=== PATIENT | male | born 1995 | race Caucasian/White ===

== ENCOUNTER 2017-01-20 13:52 | Emergency (ER) | payer OTHER | END 2017-01-20 16:37 | disposition short-term general hospital (02) | LOC: D.ER 13:52 | DX: G89.18 Other acute postprocedural pain (principal); F17.200 Nicotine dependence, unspecified, uncomplicated ==

== ENCOUNTER 2017-04-04 15:39 | Emergency (ER) | payer OTHER ==
[2017-04-04 17:53] LABS: BASOPHILS 0.2 % (0-2); EOSINOPHILS 0.4 % (0-7); HEMATOCRIT 44.2 % (42.0-54.0); HEMOGLOBIN 15.9 g/dL (13.5-17.5); IMMATURE GRANULOCYTES 0.4 % (0-5); LYMPHOCYTES 12.2 % (15-50); MCH 31.4 pg (26.0-34.0); MCV 87.2 fL (80.0-100.0); MEAN PLATELET VOLUME 10.8 fL (7.4-10.4); MONOCYTES 7.3 % (2-11); NEUTROPHILS 79.5 % (40-80); RBC 5.07 10x6/uL (4.20-6.10); RDW 12.7 % (11.5-14.5); WBC 18.5 10x3/uL (4.8-10.8)
[2017-04-04 18:03] LABS: PLATELET COUNT 184 10x3/uL (130-400)
[2017-04-04 18:20] LABS: ALBUMIN 3.9 g/dL (3.4-5.0); ALKALINE PHOSPHATASE 80 U/L (46-116); ALT (SGPT) 21 U/L (10-68); BILIRUBIN - TOTAL 0.93 mg/dL (0.2-1.3); CALC OSMOLALITY 278 mosm/kg (275-300); CALCIUM 8.9 mg/dL (8.5-10.1); CARBON DIOXIDE 25.7 mmol/L (21.0-32.0); CHLORIDE - SERUM 103 mmol/L (98-107); GLUCOSE 89 mg/dL (74-106); POTASSIUM - SERUM 3.3 mmol/L (3.5-5.1); PROTEIN - SERUM 7.2 g/dL (6.4-8.2); SODIUM 140 mmol/L (136-145); UREA NITROGEN 16 mg/dL (7-18); eGFR NON AFRICAN AMERICAN > 90 mL/min (90-120)
== END 2017-04-04 19:59 | disposition home or self-care (01) ==
LOC: D.ER 15:39
PROVIDERS: Physician Assistant Medical
DX: S80.01XA Contusion of right knee, initial encounter (principal); S50.01XA Contusion of right elbow, initial encounter; S90.01XA Contusion of right ankle, initial encounter; S10.93XA Contusion of unspecified part of neck, initial encounter; Y04.2XXA Assault by strike against or bumped into by another person, initial encounter; F17.200 Nicotine dependence, unspecified, uncomplicated

== ENCOUNTER 2018-03-08 17:34 | Emergency (ER) | payer OTHER ==
[~2018-03-08] VITALS: Ht 170.2 cm; Wt 71.4 kg
[2018-03-08 17:40] VITALS: Ht 170.2 cm; Wt 71.4 kg
[2018-03-08] MEDS ORDERED: ULTRAM50 MG PO (18:42)
[2018-03-08 19:22] VITALS: BP 145/71
== END 2018-03-08 19:24 | disposition home or self-care (01) ==
LOC: D.ER 17:34
DX: S50.11XA Contusion of right forearm, initial encounter (principal); Y04.2XXA Assault by strike against or bumped into by another person, initial encounter; Y93.89 Activity, other specified; Y92.019 Unspecified place in single-family (private) house as the place of occurrence of the external cause; F17.200 Nicotine dependence, unspecified, uncomplicated

== ENCOUNTER 2018-06-26 18:55 | Inpatient (IN) | payer OTHER ==
[~2018-06-26] VITALS: Ht 170.2 cm; Wt 64.4 kg
--- NOTE | ~2018-06-26 | CN ---
PATIENT NAME:SHREYAS BARRON JR MEDICAL RECORD: [id number] : 89 LOCATION:[id number] ADMIT DATE: 06/26/18 ACCOUNT: [id number] CONSULTING PHYSICIAN: NEHA RODRIGUEZ MD REFERRING PHYSICIAN: JOHN FREEMAN MD DATE OF CONSULTATION: 06/27/2018 PSYCHIATRIC CONSULTATION IDENTIFYING DATA: The patient is 22 years old and he is admitted to the hospital on a voluntary basis. CHIEF COMPLAINT: Overdose. HISTORY OF PRESENT ILLNESS: The patient was brought to the Emergency Room after having taken a large number of Valium that belonged to his father. He had also smoked marijuana and had been drinking some. His urine drug screen is positive for marijuana and a benzodiazepine and his blood alcohol level at least at the time, it was drawn in the Emergency Room, was present and did indicate the presence of alcohol, but did not indicate that he was dangerously intoxicated. The patient said in the Emergency Room or at least is quoted as having said in the Emergency Room that he was trying to kill himself and that he wished that we had just let him . The patient seems to have genuinely no recollection of this. He does report that he had an acute stressor yesterday, and that is that the mother of two twin children born a couple of days ago, had some other man sign the certificate as being the father and Shreyas firmly believes that he is the father of the children. He was very upset and was trying to calm himself and sleep yesterday by his report. He had an acquaintance named, Javier Schmitz, who is quoted as saying that Shreyas was intentionally trying to kill himself and that he took hundreds of Valium tablets that belonged to his father. Shreyas does not remember who Javier Schmitz is and then after a moment says that, oh yes he does remember now that was a fellow he just met yesterday and that they were "partying" together. Shreyas denies neurovegetative depressive symptoms. He is clearly angry and upset with the woman who had the two children and feels strongly that she is for some reason incorrectly identifying the father of the children. 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 He is distressed about losing his vision. Despite this, he does not show evidence of depressed mood, nor does he endorse vegetative depressive symptoms. He is probably below average in intelligence, has a history of polysubstance abuse as well as antisocial criminal behavior and is on parole for burglary. He is denying that he would seek to harm anyone else. He denies overt psychotic symptoms. MENTAL STATUS EXAMINATION: The patient is awake, alert and oriented to person, place, time and situation. His mood is euthymic. His affect is appropriate. Thought processes are goal directed. Memory, concentration, and abstraction abilities are intact. He denies that he would seek to harm himself or others as well as overt psychotic symptoms. ASSESSMENT: 1. Adjustment disorder with mixed emotional features. 2. Probable polysubstance abuse. 3. Probable antisocial personality disorder. CONSULT REPORT [id number] SHREYAS BARRON JR PLAN: At this time, the patient clearly took an overdose that is not debatable. There is documentation that he was trying to kill himself, but based on the interview, I am reasonably convinced that he was acutely impaired, intoxicated and under the influence when he made those statements and that he is not currently suicidal. He has been offered voluntary admission to a psychiatric facility and refused. He is willing to go to outpatient treatment. He does have a remote history of trying to harm himself and has 2 superficial scars on his left wrist that he made when he was a teenager. He is not currently in psychiatric treatment nor was it identified, nor was he placed in psychiatric treatment or on psychoactive medicines while [facility]. He is willing to go to outpatient counseling. He also is identifying that he needs to demand a paternity test, which is not a difficult thing to do to establish who is the father of these 2 children. He is speaking optimistically about the future, saying that he wants to be a good father and role model to these children and that he is going to learn to adapt to his loss of vision and he has known several people that are completely blind, who functioned very well. He is denying strongly that he wants to hurt himself. I suspect that the things that were quoted in the Emergency Room are correct and that he said them. I also believe that he is telling me the truth when he says he has no recollection of saying them. I also believe that he is telling me the truth that he is not acutely suicidal and again he does not have the vegetative symptoms or depressed mood. I suspect that probably the situation is one in which he is not of normal intelligence. He is below average in intelligence. He is under-socialized, has primitive defense mechanisms, tends to overreact to be impulsive and he was acutely upset and impaired cognitively when he began taking the pills yesterday. I do not think he currently meets criteria for an involuntary commitment and since he is willing to go to outpatient treatment and refusing inpatient treatment, I think that is the most reasonable course to establish at this point. I am going to refer him to the local mental health center. He says that he will go to the appointments and he is going to pursue a different route with the new mother and the babies that he thinks are his. TRANSINT:[id number] Voice Confirmation ID: [id number] DOCUMENT ID: [id number] NEHA RODRIGUEZ MD at 1612 CC: [id number] DICTATION DATE: 06/27/18 1537 [employer]ER: 06/27/18 1604 DIS IN 06/27/18 [facility] [address] [place] [address]
[~2018-06-26 18:55] MED LIST: ULTRAM50 MG PO
[2018-06-26 19:36] LABS: BASOPHILS 0.3 % (0-2); EOSINOPHILS 0.5 % (0-7); HEMATOCRIT 44.7 % (42.0-54.0); HEMOGLOBIN 15.6 g/dL (13.5-17.5); IMMATURE GRANULOCYTES 0.3 % (0-5); LYMPHOCYTES 20.6 % (15-50); MCH 31.3 pg (26.0-34.0); MCHC 34.9 g/dL (31.0-37.0); MCV 89.6 fL (80.0-100.0); MEAN PLATELET VOLUME 10.1 fL (7.4-10.4); NEUTROPHILS 73.3 % (40-80); PLATELET COUNT 184 10x3/uL (130-400); RBC 4.99 10x6/uL (4.20-6.10); RDW 13.2 % (11.5-14.5); WBC 11.6 10x3/uL (4.8-10.8)
[2018-06-26 19:52] VITALS: BP 105/62
[2018-06-26 19:59] LABS: ALBUMIN 4.1 g/dL (3.4-5.0); ALKALINE PHOSPHATASE 59 U/L (46-116); ALT (SGPT) 20 U/L (10-68); BILIRUBIN - TOTAL 0.51 mg/dL (0.2-1.3); CALC OSMOLALITY 276 mosm/kg (275-300); CALCIUM 8.6 mg/dL (8.5-10.1); CARBON DIOXIDE 18.4 mmol/L (21.0-32.0); CHLORIDE - SERUM 104 mmol/L (98-107); CREATININE - SERUM 0.8 mg/dL (0.6-1.3); GLUCOSE 96 mg/dL (74-106); POTASSIUM - SERUM 4.2 mmol/L (3.5-5.1); PROTEIN - SERUM 7.5 g/dL (6.4-8.2); SODIUM 140 mmol/L (136-145); UREA NITROGEN 7 mg/dL (7-18); eGFR NON AFRICAN AMERICAN > 90 mL/min (90-120)
[2018-06-26 20:08] LABS: CKMB 1.4 U/L (0.0-3.6); CREATINE KINASE 111 UL (21-232)
[2018-06-26 20:16] LABS: APPEARANCE CLEAR (CLEAR); BILIRUBIN NEGATIVE (NEGATIVE); COLOR STRAW (YELLOW); GLUCOSE NEGATIVE (NEGATIVE); KETONE NEGATIVE (NEGATIVE); NITRITE NEGATIVE (NEGATIVE); PROTEIN NEGATIVE (NEGATIVE); SPECIFIC GRAVITY 1.005 (1.005-1.020); UROBILINOGEN NORMAL (NORMAL)
[2018-06-26 20:17] LABS: TROPONIN-I < 0.017 ng/mL (0.000-0.060)
[2018-06-26 20:29] LABS: UDS - AMPHET NEGATIVE QUAL (NEGATIVE); UDS - BARB NEGATIVE QUAL (NEGATIVE); UDS - BENZO POSITIVE QUAL (NEGATIVE); UDS - COCAINE NEGATIVE QUAL (NEGATIVE); UDS - OPIATE NEGATIVE QUAL (NEGATIVE); UDS - PCP NEGATIVE QUAL (NEGATIVE); UDS - THC POSITIVE QUAL (NEGATIVE)
[2018-06-26 20:42] VITALS: BP 116/66
[2018-06-26 21:55] VITALS: BP 129/73; BMI 22.2
[2018-06-26 23:00] VITALS: BP 117/74
[2018-06-27] VITALS (7 sets, daily range): BP systolic 106–126; BP diastolic 61–82; Ht 170.2 cm; Wt 64.4 kg
[2018-06-27 03:29] LABS: BASOPHILS 0.6 % (0-2); EOSINOPHILS 1.7 % (0-7); HEMATOCRIT 40.9 % (42.0-54.0); HEMOGLOBIN 14.2 g/dL (13.5-17.5); IMMATURE GRANULOCYTES 0.2 % (0-5); LYMPHOCYTES 26.8 % (15-50); MCH 30.8 pg (26.0-34.0); MCHC 34.7 g/dL (31.0-37.0); MCV 88.7 fL (80.0-100.0); MEAN PLATELET VOLUME 10.2 fL (7.4-10.4); MONOCYTES 6.2 % (2-11); NEUTROPHILS 64.5 % (40-80); PLATELET COUNT 162 10x3/uL (130-400); RBC 4.61 10x6/uL (4.20-6.10); RDW 13.3 % (11.5-14.5); WBC 11.4 10x3/uL (4.8-10.8)
[2018-06-27 03:45] LABS: ALBUMIN 3.3 g/dL (3.4-5.0); ALKALINE PHOSPHATASE 50 U/L (46-116); BILIRUBIN - TOTAL 0.37 mg/dL (0.2-1.3); CALC OSMOLALITY 281 mosm/kg (275-300); CALCIUM 8.4 mg/dL (8.5-10.1); CHLORIDE - SERUM 109 mmol/L (98-107); CREATININE - SERUM 0.7 mg/dL (0.6-1.3); GLUCOSE 89 mg/dL (74-106); MAGNESIUM - SERUM 1.9 mg/dL (1.8-2.4); PROTEIN - SERUM 6.1 g/dL (6.4-8.2); SODIUM 143 mmol/L (136-145); UREA NITROGEN 8 mg/dL (7-18); eGFR NON AFRICAN AMERICAN > 90 mL/min (90-120)
[2018-06-27 03:47] LABS: ALT (SGPT) 14 U/L (10-68); CARBON DIOXIDE 24.2 mmol/L (21.0-32.0); POTASSIUM - SERUM 3.4 mmol/L (3.5-5.1)
== END 2018-06-27 15:54 | disposition home or self-care (01) | DRG 917 ==
LOC: D.ER 18:55 → OBSVTIME 20:48 → D.ICU 20:48
PROVIDERS: Family Medicine
PROC: 5A1945Z Respiratory Ventilation, 24-96 Consecutive Hours (ICD-10-PCS; principal; 2018-06-26)
PROC: 0BH17EZ Insertion of Endotracheal Airway into Trachea, Via Natural or Artificial Opening (ICD-10-PCS; 2018-06-26)
DX: T50.902A Poisoning by unspecified drugs, medicaments and biological substances, intentional self-harm, initial encounter (principal); J96.00 Acute respiratory failure, unspecified whether with hypoxia or hypercapnia; G93.40 Encephalopathy, unspecified

== ENCOUNTER 2018-11-12 12:00 | Emergency (ER) | payer SELFPAY ==
[~2018-11-12] VITALS: Ht 170.2 cm; Wt 72.6 kg
[2018-11-12 12:04] VITALS: Ht 170.2 cm; Wt 72.6 kg
[2018-11-12] MEDS ORDERED: SULFAMETHOXAZOL1 TA3 PO (13:28)
[2018-11-12] MEDS ORDERED: HYDROCODON-ACE1 EA10 PO (13:28)
[2018-11-12 13:54] VITALS: BP 129/74
== END 2018-11-12 13:55 | disposition home or self-care (01) ==
LOC: D.ER 12:00
DX: G89.18 Other acute postprocedural pain (principal); S69.92XD Unspecified injury of left wrist, hand and finger(s), subsequent encounter; W26.1XXD Contact with sword or dagger, subsequent encounter

== ENCOUNTER 2019-03-08 22:59 | Emergency (ER) | payer SELFPAY ==
[~2019-03-08] VITALS: Ht 170.2 cm; Wt 72.6 kg
[~2019-03-08 22:59] MED LIST changes: +HYDROCODON-ACE1 EA10 PO; +SULFAMETHOXAZOL1 TA3 PO
[2019-03-08 23:03] VITALS: Ht 170.2 cm; Wt 72.6 kg
[2019-03-08] MEDS ORDERED: ROBAXIN500 MG PO (23:47)
[2019-03-08] MEDS ORDERED: TORADOL10 MG PO (23:47)
[2019-03-09 00:03] VITALS: BP 123/86
== END 2019-03-09 00:04 | disposition home or self-care (01) ==
LOC: D.ER 22:59
DX: S39.011A Strain of muscle, fascia and tendon of abdomen, initial encounter (principal); X58.XXXA Exposure to other specified factors, initial encounter; F32.9 Major depressive disorder, single episode, unspecified

== ENCOUNTER 2019-11-26 18:10 | Emergency (ER) | payer SELFPAY ==
[~2019-11-26] VITALS: Ht 170.2 cm; Wt 72.7 kg
[~2019-11-26 18:10] MED LIST changes: +ROBAXIN500 MG PO; +TORADOL10 MG PO
[2019-11-26 18:12] VITALS: Ht 170.2 cm; Wt 72.7 kg
[2019-11-26 18:34] LABS: BASOPHILS 0.4 % (0-2); EOSINOPHILS 1.9 % (0-7); HEMATOCRIT 44.1 % (42.0-54.0); HEMOGLOBIN 15.6 g/dL (13.5-17.5); IMMATURE GRANULOCYTES 0.3 % (0-5); LYMPHOCYTES 21.7 % (15-50); MCH 31.1 pg (26.0-34.0); MCHC 35.4 g/dL (31.0-37.0); MCV 87.8 fL (80.0-100.0); MEAN PLATELET VOLUME 9.3 fL (7.4-10.4); MONOCYTES 6.3 % (2-11); NEUTROPHILS 69.4 % (40-80); PLATELET COUNT 192 10x3/uL (130-400); RBC 5.02 10x6/uL (4.20-6.10); RDW 13.2 % (11.5-14.5); WBC 10.8 10x3/uL (4.8-10.8)
[2019-11-26 18:58] LABS: CALC OSMOLALITY 277 mosm/kg (275-300); CALCIUM 9.1 mg/dL (8.5-10.1); CARBON DIOXIDE 27.6 mmol/L (21.0-32.0); CHLORIDE - SERUM 104 mmol/L (98-107); GLUCOSE 96 mg/dL (74-106); POTASSIUM - SERUM 3.9 mmol/L (3.5-5.1); SODIUM 139 mmol/L (136-145); UREA NITROGEN 13 mg/dL (7-18); eGFR NON AFRICAN AMERICAN > 90 mL/min (90-120)
--- NOTE | 2019-11-26 19:03 | NUR ---
According to the suicide assessment the patient scores high and requires a 1:1 observation.
[2019-11-26 19:05] LABS: ALBUMIN 3.9 g/dL (3.4-5.0); ALKALINE PHOSPHATASE 64 U/L (30-120); ALT (SGPT) 19 U/L (10-68); PROTEIN - SERUM 7.1 g/dL (6.4-8.2)
[2019-11-26 19:15] LABS: SPECIFIC GRAVITY 1.025 (1.005-1.020)
[2019-11-26 19:16] LABS: BILIRUBIN NEGATIVE (NEGATIVE); GLUCOSE NEGATIVE (NEGATIVE); KETONE NEGATIVE (NEGATIVE); NITRITE NEGATIVE (NEGATIVE); UROBILINOGEN NORMAL (NORMAL)
[2019-11-26 19:38] LABS: UDS - AMPHET POSITIVE QUAL (NEGATIVE); UDS - BARB NEGATIVE QUAL (NEGATIVE); UDS - BENZO NEGATIVE QUAL (NEGATIVE); UDS - COCAINE NEGATIVE QUAL (NEGATIVE); UDS - OPIATE NEGATIVE QUAL (NEGATIVE); UDS - PCP NEGATIVE QUAL (NEGATIVE); UDS - THC POSITIVE QUAL (NEGATIVE)
[2019-11-27 00:11] VITALS: BP 110/76
== END 2019-11-27 03:30 ==
LOC: D.ER 18:10
PROVIDERS: Emergency Medicine
DX: T14.91XA Suicide attempt, initial encounter (principal); X83.8XXA Intentional self-harm by other specified means, initial encounter

== ENCOUNTER 2020-02-16 20:58 | Emergency (ER) | payer MEDICAID ==
[~2020-02-16] VITALS: Ht 170.2 cm; Wt 81.8 kg
[2020-02-16 21:04] VITALS: Ht 170.2 cm; Wt 81.8 kg
[2020-02-16 21:31] LABS: BASOPHILS 0.5 % (0-2); EOSINOPHILS 4.6 % (0-7); HEMATOCRIT 43.6 % (42.0-54.0); HEMOGLOBIN 15.1 g/dL (13.5-17.5); IMMATURE GRANULOCYTES 0.2 % (0-5); LYMPHOCYTES 30.8 % (15-50); MCH 31.3 pg (26.0-34.0); MCHC 34.6 g/dL (31.0-37.0); MCV 90.3 fL (80.0-100.0); MEAN PLATELET VOLUME 9.9 fL (7.4-10.4); MONOCYTES 6.6 % (2-11); NEUTROPHILS 57.3 % (40-80); PLATELET COUNT 210 10x3/uL (130-400); RBC 4.83 10x6/uL (4.20-6.10); RDW 13.3 % (11.5-14.5); WBC 9.7 10x3/uL (4.8-10.8)
[2020-02-16 21:41] LABS: CALC OSMOLALITY 280 mosm/kg (275-300); CALCIUM 8.8 mg/dL (8.5-10.1); CARBON DIOXIDE 27.3 mmol/L (21.0-32.0); CHLORIDE - SERUM 105 mmol/L (98-107); CREATININE - SERUM 1.2 mg/dL (0.6-1.3); GLUCOSE 93 mg/dL (74-106); POTASSIUM - SERUM 3.8 mmol/L (3.5-5.1); SODIUM 140 mmol/L (136-145); UREA NITROGEN 19 mg/dL (7-18); eGFR NON AFRICAN AMERICAN 78 mL/min (90-120)
[2020-02-16 21:57] LABS: ALKALINE PHOSPHATASE 70 U/L (30-120); ALT (SGPT) 25 U/L (10-68); CKMB 3.5 U/L (0.0-3.6); CREATINE KINASE 271 UL (21-232); MAGNESIUM - SERUM 1.9 mg/dL (1.8-2.4); PROTEIN - SERUM 7.1 g/dL (6.4-8.2)
[2020-02-16 21:58] LABS: TROPONIN-I < 0.017 ng/mL (0.000-0.060)
[2020-02-16 22:00] LABS: BILIRUBIN NEGATIVE (NEGATIVE); GLUCOSE NEGATIVE (NEGATIVE); KETONE NEGATIVE (NEGATIVE); NITRITE NEGATIVE (NEGATIVE); SPECIFIC GRAVITY 1.025 (1.005-1.020); UROBILINOGEN NORMAL (NORMAL)
[2020-02-16 22:15] LABS: UDS - AMPHET POSITIVE QUAL (NEGATIVE); UDS - BARB NEGATIVE QUAL (NEGATIVE); UDS - BENZO POSITIVE QUAL (NEGATIVE); UDS - COCAINE NEGATIVE QUAL (NEGATIVE); UDS - OPIATE NEGATIVE QUAL (NEGATIVE); UDS - PCP NEGATIVE QUAL (NEGATIVE); UDS - THC POSITIVE QUAL (NEGATIVE)
[2020-02-16 23:54] VITALS: BP 120/65
== END 2020-02-16 23:54 | disposition home or self-care (01) ==
LOC: D.ER 20:58
PROVIDERS: Family Medicine
DX: M62.82 Rhabdomyolysis (principal); F19.10 Other psychoactive substance abuse, uncomplicated; T67.5XXA Heat exhaustion, unspecified, initial encounter

== ENCOUNTER 2020-12-30 08:28 | Emergency (ER) | payer MEDICAID ==
[~2020-12-30] VITALS: Ht 170.2 cm; Wt 70.9 kg
[2020-12-30 08:31] VITALS: BP 149/92; Ht 170.2 cm; Wt 70.9 kg
[2020-12-30] MEDS ORDERED: NAPROSYN500 MG PO (08:43)
[2020-12-30] MEDS ORDERED: AUGMENTIN 875-11 TAB PO (08:43)
== END 2020-12-30 09:33 | disposition home or self-care (01) ==
LOC: D.ER 08:28
DX: K08.89 Other specified disorders of teeth and supporting structures (principal); L73.9 Follicular disorder, unspecified